=== PATIENT | female | born 1975 | race Caucasian/White ===

== ENCOUNTER 2017-08-17 11:47 | Observation (INO) | payer OTHER, MEDICAID ==
[2017-08-17] MEDS ORDERED: NITROGLYCERIN (SL) 0.4 MG TAB SL ×2 (12:30→15:30)
[2017-08-17 12:52] LABS: ADD MAN DIFF? NO
[2017-08-17 12:54] LABS: WHITE BLOOD COUNT 5.1 10^3/ul (4.8-10.8)
[2017-08-17 12:54] LABS: BASOPHILS % 0.2 % (0.0-2.0); EOSINOPHILS # 0.1 10^3/ul (0.0-0.5); EOSINOPHILS % 1.2 % (0.0-7.0); HEMATOCRIT 37.4 % (37.0-47.0); HEMOGLOBIN 12.7 g/dl (12.0-16.0); LYMPHOCYTES # 0.9 10^3/ul (0.8-2.9); LYMPHOCYTES % 18.1 % (15.0-51.0); MEAN CORPUSCULAR HEMOGLOBIN 30.8 pg (29.0-33.0); MEAN CORPUSCULAR VOLUME 90.8 fl (82.0-101.0); MEAN PLATELET VOLUME 9.7 fl (7.4-10.4); MONOCYTE # 0.4 10^3/ul (0.3-0.9); MONOCYTES % 7.4 % (0.0-11.0); NEUTROPHIL # 3.7 10^3/ul (1.6-7.5); NEUTROPHILS % 72.3 % (39.0-77.0); PLATELET COUNT 225 10^3/UL (140-415); RED BLOOD COUNT 4.12 10^6/ul (4.20-5.40); RED CELL DISTRIBUTION WIDTH 13.5 % (11.5-14.5)
[2017-08-17] MEDS: ASPIRIN 81 MG TAB PO (12:55)
[2017-08-17] MEDS: NITROGLYCERIN 2% 1 GM OINT PKT TD (13:00)
[2017-08-17 13:15] LABS: ANION GAP 9 (8-16); BLOOD UREA NITROGEN 17 mg/dl (7-20); CALCIUM 8.4 mg/dl (8.4-10.2); CARBON DIOXIDE 27 mmol/L (21-31); CHLORIDE 109 mmol/L (97-110); CREATININE 0.49 mg/dl (0.44-1.00); GLUCOSE 85 mg/dl (70-220); POTASSIUM 3.9 mmol/L (3.5-5.1); SODIUM 141 mmol/L (135-144)
[2017-08-17] MEDS: FUROSEMIDE 40 MG INJ IV ×2 (13:25→15:30)
[2017-08-17 13:28] LABS: TROPONIN-I < 0.012 ng/ml (0.000-0.120)
[2017-08-17] MEDS ORDERED: ONDANSETRON 4 MG INJ IV (15:30)
[2017-08-17] MEDS ORDERED: ACETAMINOPHEN 325 MG TAB PO (15:30)
[2017-08-17] MEDS ORDERED: NACL 0.9% 3 ML SYG IV (15:30)
[2017-08-17] MEDS ORDERED: BISACODYL 10 MG SUPP PR (15:30)
[2017-08-17] MEDS ORDERED: HYDROCODONE/APAP (5/325) TAB PO (15:30)
[2017-08-17] MEDS ORDERED: MAGNESIUM HYDROXIDE 30ML CUP PO (15:30)
[2017-08-17] MEDS ORDERED: DOCUSATE SODIUM 100 MG CAP PO (15:30)
[2017-08-17] MEDS ORDERED: LORAZEPAM 2 MG INJ IV (15:30)
[2017-08-17] MEDS: morphine 4 MG/ML VIAL IV (15:32)
[2017-08-17] MEDS: ONDANSETRON 4 MG INJ IV ×2 (15:32→21:22)
[2017-08-17 16:52] LABS: COMPLEMENT C3 116 mg/dl (88-165)
[2017-08-17 16:59] LABS: ERYTHROCYTE SEDIMENTATION RATE 51 mm/Hr (0-20)
[2017-08-17 17:06] LABS: ADD UMIC NO; UR ASCORBIC ACID NEGATIVE (NEGATIVE); UR BILIRUBIN (Dip) NEGATIVE (NEGATIVE); UR BLOOD (Dip) NEGATIVE (NEGATIVE); UR CLARITY CLEAR (CLEAR); UR COLOR YELLOW (YELLOW); UR GLUCOSE (Dip) NEGATIVE (NEGATIVE); UR KETONES (Dip) NEGATIVE (NEGATIVE); UR LEUKOCYTE ESTERASE (Dip) NEGATIVE Leu/ul (NEGATIVE); UR NITRITE (Dip) NEGATIVE (NEGATIVE); UR TOTAL PROTEIN (Dip) NEGATIVE (NEGATIVE); UR UROBILINOGEN (Dip) NEGATIVE (NEGATIVE)
[2017-08-17] MEDS: SOD CHLORIDE 0.9% 100 ML (17:53)
[2017-08-17] MEDS: IOHEXOL 100 ML (17:53)
[2017-08-17 19:46] LABS: COMPLEMENT C4 20 mg/dl (14-44)
[2017-08-17] MEDS: morphine 2 MG INJ IV (21:22)
[2017-08-17 22:55] LABS: CREATINE KINASE < 20 IU/L (23-200)
[2017-08-17 23:08] LABS: CK-MB < 0.22 ng/ml (0.0-2.4)
[2017-08-17] MEDS: ATORVASTATIN 10 MG TAB PO (23:22)
[2017-08-17] MEDS: ACYCLOVIR 200 MG CAP PO (23:22)
[2017-08-18 01:35] LABS: CREATINE KINASE < 20 IU/L (23-200)
[2017-08-18 01:45] LABS: CK-MB < 0.22 ng/ml (0.0-2.4); TROPONIN-I < 0.012 ng/ml (0.000-0.120)
[2017-08-18] MEDS: PANTOPRAZOLE 40 MG INJ IV (06:11)
[2017-08-18] MEDS: HYDROXYCHLOROQUINE 200 MG TAB PO (08:16)
[2017-08-18] MEDS: predniSONE 10 MG TAB PO (08:16)
[2017-08-18] MEDS: ASPIRIN 81 MG TAB PO (08:16)
[2017-08-18] MEDS: ACYCLOVIR 200 MG CAP PO ×2 (08:16→21:07)
[2017-08-18] MEDS: NIFEdipine (XL) 30 MG TAB PO (08:17)
[2017-08-18] MEDS: FUROSEMIDE 40 MG INJ IV (08:17)
[2017-08-18] MEDS: ENOXAPARIN 40 MG/0.4 ML SYG SC (08:26)
[2017-08-18 08:27] LABS: ADD MAN DIFF? NO
[2017-08-18 08:33] LABS: BASOPHILS % 0.2 % (0.0-2.0); EOSINOPHILS # 0.1 10^3/ul (0.0-0.5); EOSINOPHILS % 1.2 % (0.0-7.0); HEMATOCRIT 37.6 % (37.0-47.0); HEMOGLOBIN 12.4 g/dl (12.0-16.0); LYMPHOCYTES # 0.9 10^3/ul (0.8-2.9); LYMPHOCYTES % 21.1 % (15.0-51.0); MEAN CORPUSCULAR HEMOGLOBIN 30.2 pg (29.0-33.0); MEAN CORPUSCULAR VOLUME 91.7 fl (82.0-101.0); MEAN PLATELET VOLUME 9.7 fl (7.4-10.4); MONOCYTE # 0.4 10^3/ul (0.3-0.9); MONOCYTES % 10.9 % (0.0-11.0); NEUTROPHIL # 2.6 10^3/ul (1.6-7.5); NEUTROPHILS % 65.9 % (39.0-77.0); PLATELET COUNT 210 10^3/UL (140-415); RED CELL DISTRIBUTION WIDTH 13.4 % (11.5-14.5)
[2017-08-18 09:01] LABS: ALANINE AMINOTRANSFERASE 51 IU/L (13-69); ALBUMIN 3.6 g/dl (3.3-4.9); ALBUMIN/GLOBULIN RATIO 0.85; ALKALINE PHOSPHATASE 127 IU/L (42-121); ANION GAP 15 (8-16); ASPARTATE AMINO TRANSFERASE 71 IU/L (15-46); BLOOD UREA NITROGEN 14 mg/dl (7-20); CALCIUM 8.3 mg/dl (8.4-10.2); CARBON DIOXIDE 27 mmol/L (21-31); CHLORIDE 105 mmol/L (97-110); CREATININE 0.58 mg/dl (0.44-1.00); GLUCOSE 111 mg/dl (70-220); POTASSIUM 3.7 mmol/L (3.5-5.1); SODIUM 143 mmol/L (135-144); TOTAL PROTEIN 7.8 g/dl (6.1-8.1)
[2017-08-18] MEDS: ACETAMINOPHEN 325 MG TAB PO (12:37)
[2017-08-18] MEDS: HYDROCODONE/APAP (5/325) TAB PO (16:51)
[2017-08-18] MEDS: ATORVASTATIN 10 MG TAB PO (21:07)
[2017-08-19] MEDS: PANTOPRAZOLE 40 MG INJ IV (06:17)
[2017-08-19] MEDS: ENOXAPARIN 40 MG/0.4 ML SYG SC (09:00)
[2017-08-19] MEDS: REGADENOSON 0.4 MG/5 ML SYG (11:02)
[2017-08-19] MEDS: ASPIRIN 81 MG TAB PO (13:00)
[2017-08-19] MEDS: NIFEdipine (XL) 30 MG TAB PO (13:00)
[2017-08-19] MEDS: predniSONE 10 MG TAB PO (13:00)
[2017-08-19] MEDS: HYDROXYCHLOROQUINE 200 MG TAB PO (13:00)
[2017-08-19] MEDS: ACYCLOVIR 200 MG CAP PO (13:01)
[2017-08-20] MEDS ORDERED: FUROSEMIDE 20 MG TAB PO (06:00)
== END 2017-08-19 14:42 | disposition home or self-care (01) ==
LOC: E/R 11:47 → MS4 15:15
DX: R07.89 Other chest pain (principal); I11.0 Hypertensive heart disease with heart failure; I50.32 Chronic diastolic (congestive) heart failure; M32.9 Systemic lupus erythematosus, unspecified; E78.5 Hyperlipidemia, unspecified; E66.01 Morbid (severe) obesity due to excess calories; Z68.43 Body mass index [BMI] 50.0-59.9, adult; Z82.49 Family history of ischemic heart disease and other diseases of the circulatory system
CPT/HCPCS: 36415; 71045; 71275; 78452; 80048; 80053; 81003; 82550; 82553; 83735; 84484; 85025; 85651; 86160; 93005; 93017; 93306; 96374; 96375; 96376; 99285-25; G0378

== ENCOUNTER 2017-12-21 20:21 | Emergency (ER) | payer MEDICAID, OTHER ==
[2017-12-21] MEDS: CLINDAMYCIN 300 MG CAP PO (22:03)
[2017-12-21] MEDS: KETOROLAC 30 MG INJ IV (22:04)
[2017-12-21] MEDS: HYDROCODONE/APAP (10/325) TAB PO (22:50)
== END 2017-12-21 22:58 | disposition home or self-care (01) ==
LOC: E/R 20:21
DX: L03.116 Cellulitis of left lower limb (principal); I11.0 Hypertensive heart disease with heart failure; I50.9 Heart failure, unspecified; Z79.82 Long term (current) use of aspirin
CPT/HCPCS: 81025; 93970; 96374; 99285-25

== ENCOUNTER 2018-11-19 18:07 | Emergency (ER) | payer SELFPAY, MEDICAID ==
[2018-11-19] MEDS: DEXAMETHASONE 10 MG/ML 1 ML INJ IM (19:39)
[2018-11-19] MEDS: HYDROCODONE/APAP (5/325) TAB PO (19:39)
== END 2018-11-19 20:23 | disposition home or self-care (01) ==
LOC: FTE 18:07
DX: B02.9 Zoster without complications (principal); I10 Essential (primary) hypertension; L93.0 Discoid lupus erythematosus
CPT/HCPCS: 96372; 99284-25